=== PATIENT | male | born 1935 | race Caucasian/White ===

== ENCOUNTER 2017-03-30 09:02 | Outpatient (CLI) | payer MEDICARE, OTHER ==
[2016-06-12 12:26] VITALS: BMI 28.1
--- NOTE | ~2017-03-30 | HEMODYNAMI ---
PATIENT:MIQUEL WHALEN MEDICAL RECORD: [id number] : 39 LOCATION:[facility] ADMISSION DATE: 03/30/17 Generatedon:03/30/201714:07 Patient name: MIQUEL WHALEN Patient #: [id number] SSN: [id number] : 1935 Date of study: 03/30/2017 Page: Of Hemodynamic Procedure Report Patient Data Patient Demographics Procedure consent was obtained First Name: MIQUEL Gender: Male Last Name: KOBY : 1935 [facility] Initial: LIU Age: 81 year(s) Patient #: [id number] Race: SSN: [id number] Additional ID: [id number] Contact details Address: [address] [place] [address] State: [place] City: [place] Zip code: [address] Past Medical History Allergies Allergen Reaction Date Comments Reported Morphine 06/12/2016 Other allergy 03/30/2017 XARELTO Admission Admission Data Admission Date: 03/30/2017 Admission Time: 9:02 Height (in.): 75 BSA: 2.24 (m2) Height (cm.): 190.5 BMI: 26.37 (kg/m2) Weight (lbs.): 211 Weight (kg.): 95.71 Procedure Procedure Types Cath Procedure Diagnostic Procedure [facility] w/Coronaries Miscellaneous Procedures Moderate Sedation up to 30 minutes Procedure Description Procedure Date Procedure Date: 03/30/2017 Procedure Start Time: 13:49 Procedure End Time: 14:07 Procedure Staff Name Function Jed Silverman MD Performing Physician Vita Phillips RT Scrub Priscila James RN Nurse Adrianna Phan RT Monitor Procedure Data Cath Procedure Fluoroscopy Diagnostic fluoroscopy Total fluoroscopy Time: 3.7 time: 3.7 min min Diagnostic fluoroscopy Total fluoroscopy dose: 666 dose: 666 mGy mGy Contrast Material Contrast Material Type Amount (ml) Isovue 300 77 Entry Location Entry Primary Successful Side Size Upsize Upsize Entry Closure Succes sful Closure Location (Fr) 1 (Fr) 2 (Fr) Remarks Device Remarks Femoral Right 5 Fr 6 Fr 6 Fr Exoseal artery Long Short Estimated blood loss: 5 ml Diagnostic catheters Device Type Used For End Catheter Placement Cordis 5Fr JL 4.0 Left Coronary Catheter (MP) Angiography Diagnostic Infinity 5Fr Left Coronary JL 5 catheter Angiography Diagnostic Infinity 5Fr Left Coronary JL 5 catheter Angiography Cordis 5Fr 3DRC Catheter Right Coronary (MP) Angiography Cordis 5Fr Pigtail LV Angiography Catheter (MP) Procedure Complications No complications Procedure Medications Medication Administration Route Dosage Oxygen NC 2 l/min Heparin Flush Bag added to field 2 bags (1000units/500ml NS) Lidocaine 2% added to field 20 Fentanyl I.V. 50 mcg Versed I.V. 1 mg Fentanyl I.V. 25 mcg Versed I.V. 0.5 mg Hemodynamics Rest BSA: 2.24 (m2) O2 Consumption: Estimated: 253.62 (ml/min) O2 Consumption indexed : Estimated:113.22 (ml/min/m) Heart Rate: 67 (bpm) Pressure Samples Time Site Value (mmHg) Purpose Heart Use Rate(bpm) 14:02 LV 156/22,24 EDP 60 14:02 AO 152/92(126) Pullback 60 Gradients Valve Time Site Site 2 Mean SEP/DFP Peak To Heart Use 1 (mmHg) (sec/min) Peak Rate (mmHg) (bpm) Aortic 14:02 LV AO 1 5 60 152/92(126) Calculations Valve P-P Mean Valve Index Valve Source Name Gradient Area Flow (cm2) Aortic 1 1 Snapshots Pre Cath Intra NCS Post Cath Vital Signs Time Heart Resp SPO2 etCO2 NIBP (mmHg) Rhythm Pain Sedation Rate (ipm) (%) (mmHg) Status Level (bpm) 13:37:58 65 16 95 28.8 186/104(151) NSR 0 (11) 10(A) , No pain 13:42:24 58 17 99 47.7 175/97(132) NSR 0 (11) 10(A) , No pain 13:46:45 59 19 98 40.1 161/93(118) NSR 0 (11) 10(A) , No pain 13:51:03 56 19 98 33.3 150/87(104) NSR 0 (11) 9(A) , No pain 13:55:23 51 16 98 21.9 124/79(94) NSR 0 (11) 9(A) , No pain 14:00:05 58 20 97 18.9 152/97(116) NSR 0 (11) 9(A) , No pain 14:04:17 60 18 96 19.7 158/95(127) NSR 0 (11) 9(A) , No pain Medications Time Medication Route Dose Verified Delivered Reason Notes Effec tiveness by by 13:39:10 Oxygen NC 2 Priscila Priscila used for l/min James James new car salesperson RN 13:39:21 Heparin Flush added 2 Priscila Priscila used for Bag to bags James James procedure (1000units/500ml field RN RN NS) 13:39:28 Lidocaine 2% added 20ml Priscila Prsicila used for to vial James James procedure field RN RN 13:49:20 Fentanyl I.V. 50 Priscila Priscila for mcg James James sedation RN RN 13:49:25 Versed I.V. 1 mg Priscila Priscila for James James sedation RN RN 13:55:24 Fentanyl I.V. 25 Priscila Priscila for mcg James James sedation RN RN 13:55:27 Versed I.V. 0.5 Priscila Priscila for mg James James sedation RN ultrasonic hand solderer Log Time Note 13:20:44 Adrianna Counts RT(R) sent for patient. Start room use. 13:20:50 Time tracking: Regular hours 13:21:00 Plan of Care:Hemodynamics will remain stable., Cardiac rhythm will remain stable., Comfort level will be maintained., Respiratory function will remain adequate., Patient/ family verbilizes understanding of procedure., Procedure tolerated without complication., Recovers from procedure without complications.. 13:35:16 Patient received from ED to CCL 2 Alert and oriented. Tansferred to table in Supine position. 13:35:17 Warm blankets applied, and hilda hugger turned on for patient comfort. 13:35:18 Correct patient and procedure confirmed by team. 13:35:19 Signed procedure consent form obtained from patient. 13:36:49 ECG and BP/O2 sat monitors applied to patient. 13:36:49 Vital chart was started 13:36:50 Baseline sample Acquired. 13:38:47 Full Disclosure recording started 13:38:49 Rhythm: sinus rhythm 13:38:52 Baseline sample Acquired. 13:39:01 H&P Date Dictated: 03/30/2017 Within 30 days and on chart., ER History on chart.. 13:39:06 Pre-procedure instructions explained to patient. 13:39:06 Pre-op teaching completed and patient verbalized understanding. 13:39:08 Family unavailable. 13:39:10 Oxygen 2 l/min NC was administered by Priscila James RN; used for procedure; 13:39:10 Patient NPO since Midnight. 13:39:21 Heparin Flush Bag (1000units/500ml NS) 2 bags added to field was administered by Priscila James RN; used for procedure; 13:39:23 Patient allergic to Other allergyXARELTO 13:39:27 Is the patient allergic to Iodine/contrast media? No. 13:39:28 Lidocaine 2% 20ml vial added to field was administered by Priscila James RN; used for procedure; 13:39:31 Is patient on blood thinner?No 13:39:34 ACC The patient was administered the following blood thiners within the last 24 hours: ACCPlavix 13:39:36 Patient diabetic? No. 13:39:43 Previous problem with sedation/anesthesia? No ? 13:39:44 Snore? Yes 13:39:45 Sleep apnea? No 13:39:46 Deviated septum? No 13:39:47 Opens mouth fully? Yes 13:39:47 Sticks out tongue? Yes 13:39:49 Airway obstruction? No ? 13:39:50 Dentures? No ? 13:39:54 Pre procedure: right dorsailis pedis pulse 2+ Normal; easily identifiable; not easily obliterated 13:39:57 Patient pain scale 0/10 ?. 13:40:03 IV patent on arrival in left forearm with 0.9% NaCl at [facility]. 13:40:07 Lab results completed and on chart. 13:40:09 Right groin area was prepped with chlora-prep and draped in sterile fashion 13:40:10 Alarms reviewed by R. N. 13:40:10 Sharps counted by scrub and verified by R.N. 13:40:13 Use device set Femoral Dx 13:40:14 Acist Syringe opened to sterile field. 13:40:14 Bag Decanter opened to sterile field. 13:40:15 Medline Cath Pack opened to sterile field. 13:40:15 Terumo 5Fr [place] Sheath opened to sterile field. 13:40:15 St Karthik 260cm J .035 wire opened to sterile field. 13:40:17 Acist Hand Control opened to sterile field. 13:40:17 Acist Manifold opened to sterile field. 13:40:17 Diagnostic Infinity 5Fr Multipack catheter opened to sterile field. 13:40:18 Tegaderm 4 x 4 opened to sterile field. 13:41:17 Patient Height : 75 inches 13:41:20 Patient Weight : 211 lbs 13:43:41 Final Timeout: patient, procedure, and site verified with staff and physician. All members of the team are in agreement. 13:43:43 Right groin site verified by team. 13:43:45 Physical assessment completed. ASA score P 2 - A patient with mild systemic disease as per Jed Silverman MD. 13:43:48 Sedation plan: IV Moderate Sedation Versed, Fentanyl 13:49:04 Procedure started. 13:49:08 Local anesthetic to right femoral artery with Lidocaine 2% by Jed Silverman MD.INITIAL ACCESS ONLY 13:49:20 Fentanyl 50 mcg I.V. was administered by Priscila James RN; for sedation; 13:49:25 Versed 1 mg I.V. was administered by Priscila James RN; for sedation; 13:49:34 A 5 Fr sheath was inserted into the Right Femoral artery 13:49:52 Zero performed for pressure channel P1 13:50:18 A Cordis 5Fr JL 4.0 Catheter () was advanced over the wire and used for Left Coronary Angiography. REMOVED, UNABLE TO CANNULATE 13:52:45 A Diagnostic Infinity 5Fr JL 5 catheter was advanced over the wire and used for Left Coronary Angiography.REMOVED, UNABLE TO CANNULATE 13:54:33 Terumo 6Fr [place] Destination Sheath opened to sterile field. 13:55:24 Fentanyl 25 mcg I.V. was administered by Priscila James RN; for sedation; 13:55:27 Versed 0.5 mg I.V. was administered by Priscila James RN; for sedation; 13:56:18 Sheath upsized to a 6 Fr Long. 13:56:33 A Diagnostic Infinity 5Fr JL 5 catheter was advanced over the wire and used for Left Coronary Angiography. 13:57:58 Catheter removed. 13:58:04 A Cordis 5Fr 3DRC Catheter (MP) was advanced over the wire and used for Right Coronary Angiography. 13:59:53 Catheter removed. 13:59:57 A Cordis 5Fr Pigtail Catheter (MP) was advanced over the wire and used for LV Angiography. 14:00:48 Terumo 6Fr [place] Sheath opened to sterile field. 14:02:13 LV gram done using TEJADA 14:02:15 LV hemodynamics recorded. 14:02:18 Injector settings: Ml/sec: 10, Volume: 20, 14:02:23 EF : 55 % 14:02:35 Catheter removed. 14:02:40 Sheath upsized to a 6 Fr Short. 14:02:47 Cordis 6Fr Exoseal opened to sterile field. 14:03:16 Sheath removed intact; hemostasis achieved with Exoseal to the Right Femoral artery. 14:03:20 Procedure ended.(Physican Out) 14:04:45 Fluoroscopy time 03.70 minutes. 14:04:48 Fluoroscopy dose: 666 mGy 14:04:48 Flurop Dose total: 666 14:04:57 Contrast amount:Isovue 300 77ml. 14:04:59 Sharps counted by scrub and verified by R.N. 14:05:00 Insertion/operative site no bleeding no hematoma. 14:05:04 Post-op/insertion site Right Femoral artery dressed using a 4 x 4 and Tegaderm. 14:05:07 Post right femoral artery:stable, clean and dry 14:05:09 Post Procedure Pulses reassessed and unchanged 14:05:11 Post-procedure physical assessment completed. ASA score P 2 - A patient with mild systemic disease as per Jed Silverman MD. 14:05:13 Post procedure rhythm: unchanged. 14:05:15 Estimated blood loss: 5 ml 14:05:17 Post procedure instruction explained to patient.Patient verbalizes understanding. 14:05:17 Patient needs reinforcement of post procedure teaching. 14:05:27 Procedure type changed to Cath procedure, Diagnostic procedure, LHC, LHC w/Coronaries, Miscellaneous Procedures, Moderate Sedation up to 30 minutes 14:05:34 Procedure Complication : No complications 14:05:36 See physician's report for complete and final results. 14:07:08 Procedure and supply charges have been captured, reviewed, submitted and are correct. 14:07:10 Vital chart was stopped 14:07:12 Report given to Pre/Post Procedure Room. 14:07:15 Patient transfered to Pre/Post Procedure Room with Stretcher. 14:07:17 Procedure ended. 14:07:17 Full Disclosure recording stopped 14:07:25 End room use (Document Last) Device Usage Item Name Manufacture Quantity Catalog Hospital Part Current Minimal L ot# / Number Charge Number Stock Stock Serial# Code Acist Acist 1 [id number] 149224 256528 140673 20 Syringe [employer] Inc Bag Microtek 1 2002S 323164 19808 635010 5 Decanter [employer] Inc. Medline Cardinal 1 [id number] [id number] 63724 039532 5 Cath Pack Health Terumo 5Fr Terumo 1 VOR002 833517 876110 023648 [address] Karthik 1 193207 347995 745210 265777 30 260cm J .035 wire Acist Hand Acist 1 08249 579548 627630 228543 5 Control [employer] Inc Acist Acist 1 35712 183121 311389 335887 5 Manifold Medical Systems Inc Diagnostic Cardinal 1 [id number] 877228 21090 382702 30 Infinity Health 5Fr Multipack catheter Tegaderm 4 3M 1 1626W 227966 505812 324462 5 x 4 Cordis 5Fr Cardinal 1 958562 5 JL 4.0 Health Catheter (MP) Diagnostic Cardinal 1 [id number] 482981 275105 385748 5 Infinity Health 5Fr JL 5 catheter Terumo 6Fr Terumo 1 RSR01 635619 60159 553051 5 [place] Destination Sheath Cordis 5Fr Cardinal 1 253993 5 3DRC Health Catheter (MP) Cordis 5Fr Cardinal 1 038334 5 Pigtail Health Catheter (MP) Terumo 6Fr Terumo 1 QWN176 616950 001400 153580 40 [place] Sheath Cordis 6Fr Cardinal 1 EX600 745989 372890 393379 10 Progression Labs Signature Audit Duncan Stage Time Signature Unsigned Intra-Procedure 03/30/2017 Adrianna 2:07:36 PM Counts RT(R) Signatures Monitor : Adrianna Signature : Counts RT Date : Time : [address] [place] [address]
[~2017-03-30 09:02] MED LIST: CASCARA; CELEXA20 MG PO; CRESTOR40 MG PO; NEURONTIN 300300 MG PO; PLAVIX75 MG PO; PROTONIX40 MG PO; SYNTHROID125 MCG PO
[2017-03-30 09:47] LABS: BASOPHILS 0 % (0-2); EOSINOPHILS 1.8 % (0-7); HEMATOCRIT 39.4 % (42.0-54.0); HEMOGLOBIN 12.8 g/dL (13.5-17.5); LYMPHOCYTES 24.1 % (15-50); MCH 31.4 pg (26.0-34.0); MCHC 32.5 g/dL (31.0-37.0); MCV 96.6 fL (80.0-100.0); MEAN PLATELET VOLUME 10.1 fL (7.4-10.4); MONOCYTES 10.6 % (2-11); NEUTROPHILS 63.5 % (40-80); PLATELET COUNT 159 10x3/uL (130-400); RBC 4.08 10x6/uL (4.20-6.10); RDW 14.1 % (11.5-14.5); WBC 5.7 10x3/uL (4.8-10.8)
[2017-03-30 10:04] LABS: ALBUMIN 3.5 g/dL (3.4-5.0); ALKALINE PHOSPHATASE 78 U/L (46-116); ALT (SGPT) 23 U/L (10-68); BILIRUBIN - TOTAL 0.52 mg/dL (0.2-1.3); CALC OSMOLALITY 280 mosm/kg (275-300); CALCIUM 9.2 mg/dL (8.5-10.1); CARBON DIOXIDE 28.5 mmol/L (21.0-32.0); CHLORIDE - SERUM 104 mmol/L (98-107); CREATININE - SERUM 1.3 mg/dL (0.6-1.3); GLUCOSE 93 mg/dL (74-106); POTASSIUM - SERUM 4.4 mmol/L (3.5-5.1); PROTEIN - SERUM 6.7 g/dL (6.4-8.2); SODIUM 140 mmol/L (136-145); UREA NITROGEN 18 mg/dL (7-18); eGFR NON AFRICAN AMERICAN 56 mL/min (90-120)
[2017-03-30 10:13] LABS: CHOL - HDL RATIO 3.4 ratio (2.3-4.9); CHOLESTEROL, TOTAL 151 mg/dL (0-200); CKMB 1.9 U/L (0.0-3.6); CREATINE KINASE 109 UL (21-232); HDL CHOLESTEROL 45 mg/dL (32-96); LDL CHOLESTEROL 76 mg/dL (0-100); LDL-HDL RATIO 1.7 ratio (1.5-3.5); MAGNESIUM - SERUM 2.3 mg/dL (1.8-2.4); TRIGLYCERIDE 152 mg/dL (30-200)
[2017-03-30 10:14] LABS: TROPONIN-I < 0.017 ng/mL (0.000-0.060)
== END 2017-03-30 16:30 | disposition home or self-care (01) ==
LOC: D.OPS 09:02 → D.ER 09:02 → EDSTATUS 13:48 → D.OPS 16:30
PROVIDERS: Emergency Medicine
DX: I25.119 Atherosclerotic heart disease of native coronary artery with unspecified angina pectoris (principal); R06.00 Dyspnea, unspecified; E78.5 Hyperlipidemia, unspecified; E03.9 Hypothyroidism, unspecified; K21.9 Gastro-esophageal reflux disease without esophagitis; Z01.812 Encounter for preprocedural laboratory examination

== ENCOUNTER 2017-11-16 11:13 | Outpatient (CLI) | payer MEDICARE, OTHER ==
[~2017-11-16] VITALS: Ht 190.5 cm; Wt 90.8 kg
--- NOTE | ~2017-11-16 | OP ---
PATIENT NAME: MIQUEL WHALEN MEDICAL RECORD: [id number] :37 LOCATION:D[facility] ADMISSION DATE: SURGEON: MARCIAL ARCHER MD DATE OF OPERATION: 11/16/2017 PROCEDURES: 1. PTCA stent LAD. 2. Intravascular ultrasound. 3. Left heart catheterization. 4. Selective coronary angiography. 5. Left ventriculogram. INDICATION: Unstable angina and coronary artery disease. PROCEDURE IN DETAIL: After informed consent was obtained and after a detailed description of the risks, benefits as well as alternative therapies, the patient elected to proceed with angiogram and angioplasty. The left femoral area was prepped and draped in normal sterile fashion. Left femoral artery was cannulated via modified Seldinger technique with placement of 6-[place] sheath. All catheters exchanged through this sheath. FINDINGS: Left ventriculogram was performed in standard 30-degree TEJADA view, reveals good cardiac wall motion throughout all segments. Overall ejection fraction estimated at 55%. SELECTIVE CORONARY ANGIOGRAPHY: 1. Left main has no significant angiographic disease. 2. Left anterior descending has previously placed stents. Intravascular ultrasound confirms greater than 70% in-stent restenosis. 3. Left circumflex has moderate irregularities, but no flow-limiting stenosis. 4. The right coronary has mild irregularities, but no flow-limiting stenosis. PTCA STENT OF THE LAD: The stent used is a 3.0 x 15 mm Loraine. Result was 0% residual stenosis. OVERALL IMPRESSION: Successful percutaneous transluminal coronary angioplasty stent of the left anterior descending going from greater than 70% initial stenosis to 0% residual. TRANSINT:[id number] Voice Confirmation ID: [id number] DOCUMENT ID: [id number] MARCIAL ARCHER MD at 1403 CC: [id number] DICTATION DATE: 11/16/17 1609 SHADE MAKER: 11/16/17 1847 DEP CLI 11/17/17 [place] [id number]
--- NOTE | ~2017-11-16 | OP ---
PATIENT NAME: MIQUEL WHALEN MEDICAL RECORD: [id number] :37 LOCATION:D.CAT ADMISSION DATE: SURGEON: MARCIAL ARCHER MD DATE OF OPERATION: 11/16/2017 PROCEDURE: 1. Aortofemoral runoff. 2. Abdominal aortography. INDICATION: Claudication, peripheral vascular disease, difficulty obtaining access for cardiac catheterization. PROCEDURE IN DETAIL: After informed consent was obtained and after detailed description of risks, benefits as well as alternative therapies, the patient elected to proceed with angiogram. The left femoral area had a preexisting sheath from cardiac intervention. All catheters exchanged through this sheath. FINDINGS: Abdominal aortography was performed. The catheter was pulled down for aortofemoral runoff. Abdominal aortography reveals very tortuous abdominal aorta, but no dissection or aneurysm formation. No abdominal aortic disease of significance. No renal artery stenosis. RIGHT LEG: A. Iliac: The common internal and external iliacs are tortuous, but no flow-limiting stenosis. B. Femoral system: The common superficial and deep femoral have moderate irregularities, but no flow-limiting stenosis. C. Popliteal and infrapopliteal vessels are widely patent with good 3-vessel runoff to the foot. LEFT LEG: A. Iliac: The common internal and external iliacs are extremely tortuous, but no flow-limiting stenosis. B. Femoral system: The common superficial and deep femoral have moderate irregularities, but no flow-limiting stenosis. C. Popliteal and infrapopliteal vessels are widely patent. Good 3-vessel runoff to the foot. OVERALL IMPRESSION: Tortuosity of the iliacs, minimal peripheral vascular disease is present. Continue medical management of the peripheral vascular risk factors. TRANSINT:[id number] Voice Confirmation ID: [id number] DOCUMENT ID: [id number] MARCIAL ARCHER MD at 1403 CC: [id number] DICTATION DATE: 11/16/17 1609 BIKE TECHNICIAN: 11/16/17 1850 DEP CLI 11/17/17 [place] [id number] [place] [id number]
--- NOTE | ~2017-11-16 | CN ---
PATIENT NAME:MIQUEL LEE MEDICAL RECORD: [id number] : 39 LOCATION:D.CAT ADMIT DATE: ACCOUNT: [id number] CONSULTING PHYSICIAN: MARCIAL ARCHER MD REFERRING PHYSICIAN: YUMIKO ISRAEL MD DATE OF CONSULTATION: 11/16/2017 DIAGNOSES: 1. Unstable angina. 2. Coronary artery disease. 3. Previous multivessel percutaneous transluminal coronary angioplasty stent. 4. Hyperlipidemia. 5. Gastroesophageal reflux disease. HISTORY OF PRESENT ILLNESS: Mr. Lee presents with angina. He has a history of multivessel PTCA stent, the last being 2 years ago. He had severe chest discomfort this morning, just like that of his previous angina. It was relieved with nitroglycerin. His chest pain was more severe than he has had in the past. His EKG is abnormal with a right bundle branch block. PHYSICAL EXAMINATION: GENERAL APPEARANCE: Well-nourished, well-developed, appears stated age. Level of distress, comfortable. PSYCHIATRIC: Mental status, alert, normal affect. Orientation, oriented to time, place and person. EYES: Lids and conjunctiva, noninjected. No discharge, no pallor. ENT: Lips, teeth, gums, normal dentition. Oropharynx, no cyanosis, no pallor. NECK: Carotid arteries, bilateral normal upstroke, no bruits, no thrills. JUGULAR VEINS: No jugular venous pressure or distention. CERVICAL LYMPH NODES: Nontender, nonenlarged. THYROID: Not enlarged. Nontender. No nodules. LUNGS: Respiratory effort, unlabored. CHEST: Normal curvature. No thoracic deformity. No chest wall tenderness. Percussion, resonant. Auscultation, clear. No wheezes, no rales, no rhonchi. CARDIOVASCULAR: Precordial exam, nondisplaced. No heaves or pericardial thrills. Rate and rhythm, regular. Heart sounds, normal S1, normal S2. No S3, no gallop, no rub. Systolic murmur, not heard. Diastolic murmur, not heard. EXTREMITIES: No cyanosis, no edema. Peripheral pulses, full and equal in all extremities, except as noted. No bruits appreciated. ABDOMEN: Soft, nondistended. Normal aorta. No bruit. Nontender. No masses. Liver, nontender, no hepatomegaly. Spleen, nontender, no splenomegaly. MUSCULOSKELETAL: No joint tenderness. No joint swelling. No erythema. NEUROLOGICAL: Normal gait, normal strength, normal tone. SKIN: Warm and dry. REVIEW OF SYSTEMS: The patient reports easy bruising but reports no swollen glands. The patient reports no fever, no night sweats, no significant weight gain, no significant weight loss. No significant exercise tolerance. The patient reports no dry eyes, no irritation, no vision change. Patient reports no difficulty hearing and no ear pain. Patient reports no frequent nose bleeds or nose and sinus problems. Patient reports on arm pain on exertion. No shortness of breath while lying down. No history of heart murmur. Patient reports no cough, no wheezing or coughing up blood. Patient reports no abdominal pain, no vomiting. Normal appetite. No diarrhea and not vomiting blood. No nausea and no constipation. Patient reports no incontinence. No CONSULT REPORT [id number] MIQUEL LEE difficulty urinating. No hematuria. No increased frequency. Patient reports no muscle aches. No weakness, no arthralgias, no back pain. No swelling of the extremities. Patient reports no abnormal mole, no jaundice, no rashes. Reports no loss of consciousness. No weakness and no numbness. No seizures, dizziness, or headaches. The patient reports no depression, no sleep disturbance, feeling safe in a relationship and no alcohol abuse. Patient reports on fatigue. Reports no runny nose or sinus pressure. No itching, no hives, and no frequent sneezing. OVERALL IMPRESSION: Chest pain compatible with angina, very severe. He has continued to have episodes of chest pain. Most likely, he has recurrent hemodynamically significant coronary artery disease. We will proceed with coronary angiography. Further care depends upon findings of the angiography. TRANSINT:[id number] Voice Confirmation ID: [id number] DOCUMENT ID: [id number] MARCIAL ARCHER MD at 1605 CC: [id number] DICTATION DATE: 11/16/17 1146 METAL SLITTER: 11/16/17 1405 [facility] [address] [place] [address]
--- NOTE | ~2017-11-16 | HEMODYNAMI ---
PATIENT:MIQUEL WHALEN MEDICAL RECORD: [id number] : 39 LOCATION:D.CAT ADMISSION DATE: 11/16/17 Generatedon:11/16/201716:07 Patient name: MIQUEL WHALEN Patient #: [id number] SSN: [id number] : 1935 Date of study: 11/16/2017 Page: Of Hemodynamic Procedure Report Patient Data Patient Demographics Procedure consent was obtained First Name: MIQUEL Gender: Male Last Name: KOBY : 1935 [facility] Initial: LIU Age: 82 year(s) Patient #: [id number] Race: SSN: [id number] Additional ID: [id number] Contact details [address]: [address] [place] [address] State: [place] City: [place] Zip code: [address] Past Medical History Allergies Allergen Reaction Date Comments Reported Morphine 06/12/2016 Other allergy 03/30/2017 XARELTO Other allergy 11/16/2017 Morphine, rivaroxaban Admission Admission Data Admission Date: 11/16/2017 Admission Time: 11:13 Height (in.): 74.8 BSA: 2.25 (m2) Height (cm.): 190 BMI: 26.87 (kg/m2) Weight (lbs.): 213.85 Weight (kg.): 97 Lab Results Lab Result Date: 11/16/2017 Lab Result Time: 0:00 Biochemistry Name Units Result Min Max BUN mg/dl 13 --(--*-)-- 7 18 Creatinine mg/dl 1.3 --(---*)-- 0.6 1.3 CBC Name Units Result Min Max Hemoglobin g/dl 11.9 *-(----)-- 13.5 17.5 Procedure Procedure Types Cath Procedure Diagnostic Procedure [facility] w/Coronaries FFR/IVUS Intra-Coronary IVUS Initial Sedation Charges Moderate Sedation up to 15 minutes PCI Procedure Coronary Stent Coronary Stent Initial Peripheral Cath Diagnostic Procedure Cath Peripheral Pcwqo-Tovculq-Bkz-Off Procedure Description Procedure Date Procedure Date: 11/16/2017 Procedure Start Time: 15:42 Procedure End Time: 16:04 Procedure Staff Name Function Godfrey Baires MD Performing Physician Nkechi Martínez RT Monitor Filipe Castillo RN Nurse Heather Gamino RN Nurse Vita Phillips RT Scrub Procedure Data Cath Procedure Fluoroscopy Diagnostic fluoroscopy Total fluoroscopy Time: 5.9 time: 5.9 min min Diagnostic fluoroscopy Total fluoroscopy dose: dose: 1311 mGy 1311 mGy Contrast Material Contrast Material Type Amount (ml) Isovue 300 130 Entry Location Entry Primary Successful Side Size Upsize 1 Upsize Entry Closure Cutler ccessful Closure Location (Fr) (Fr) 2 (Fr) Remarks Device Remarks Femoral Left 6 Fr 6 Fr 6 Fr Exoseal artery Short Mid-Length Short Estimated blood loss: 10 ml Diagnostic catheters Device Type Used For End Catheter Placement MULTIPACK Pigtail 5 Fr Abdominal catheter aortogram with runoff MULTIPACK Pigtail 5 Fr LV Angiography catheter MULTIPACK JL 4.0 5Fr Procedure catheter MULTIPACK 3DRC 5Fr Procedure catheter Procedure Complications No complications Procedure Medications Medication Administration Route Dosage Oxygen NC 2 l/min Lidocaine 2% added to field 20 Heparin Flush Bag added to field 2 bags (1000units/500ml NS) 0.9% NaCl I.V. 100 ml/hr Versed I.V. 1 mg Fentanyl I.V. 50 mcg Versed I.V. 1 mg Fentanyl I.V. 50 mcg Heparin Bolus I.V. 4000 units Hemodynamics Rest BSA: 2.25 (m2) HGB: 11.9 (g/dl) O2 Consumption: Estimated: 252.65 (ml/min) O2 Co nsumption indexed: Estimated:112.29 (ml/min/m) Heart Rate: 65 (bpm) Pressure Samples Time Site Value (mmHg) Purpose Heart Use Rate(bpm) 15:49 LV 83/2,-12 Snapshot 113 15:49 LV 166/13,17 Snapshot 81 15:49 AO 152/75(111) Pullback 66 15:49 LV 173/12,17 Pullback 66 Gradients Valve Time Site 1 Site 2 Mean SEP/DFP Peak To Heart Use (mmHg) (sec/min) Peak Rate (mmHg) (bpm) Aortic 15:49 LV AO 28 21 21 66 173/12,17 152/75(111) Calculations Valve P-P Mean Valve Index Valve Source Name Gradient Area Flow (cm2) Aortic 21 28 28 Snapshots Pre Cath Intra NCS Post Cath Vital Signs Time Heart Resp SPO2 etCO2 NIBP (mmHg) Rhythm Pain Sedation Rate (ipm) (%) (mmHg) Status Level (bpm) 15:36:35 67 13 98 25.4 200/105(126) NSR 0 (11) 10(A) , No pain 15:41:03 66 18 97 20 199/103(123) NSR 0 (11) 10(A) , No pain 15:45:21 66 15 96 24.2 160/90(151) NSR 0 (11) 9(A) , No pain 15:49:41 67 16 95 24.7 156/107(129) NSR 0 (11) 9(A) , No pain 15:53:59 68 14 96 27.7 158/87(124) NSR 0 (11) 9(A) , No pain 15:58:17 66 15 96 21.7 161/97(139) NSR 0 (11) 9(A) , No pain 16:02:37 71 15 97 21.7 164/96(142) NSR 0 (11) 10(A) , No pain Medications Time Medication Route Dose Verified Delivered Reason Notes Effectiveness by by 15:38:32 Oxygen NC 2 Godfrey Buffie used for l/min Viry Gamino RN procedure 15:38:39 Lidocaine 2% added 20ml Godfrey Godfrey for local to vial Viry Baires MD anesthetic field 15:38:44 Heparin Flush added 2 Godfrey Godfrey used for Bag to bags Viry Baires MD procedure (1000units/500ml field NS) 15:38:54 0.9% NaCl I.V. 100 Godfrey Buffie Per physician ml/hr Viry Gamino RN 15:40:12 Versed I.V. 1 mg Godfrey Buffie for sedation Viry Gamino RN 15:40:19 Fentanyl I.V. 50 Godfrey Buffie for sedation mcg Viry Gamino RN 15:50:00 Versed I.V. 1 mg Godfrey Buffie for sedation Viry Gamino RN 15:50:04 Fentanyl I.V. 50 Godfrey Buffie for sedation mcg Viry Gamino RN 15:55:59 Heparin Bolus I.V. 4000 Godfrey Buffie for verifi ed units Tauth MD Gamino RN anticoagulation with dr baires Procedure Log Time Note 15:16:30 Patient Height : 74.8 inches 15:16:36 Patient Weight : 213.85 lbs 15:17:09 Lab Result : Hemoglobin 11.9 g/dl 15:17:09 Lab Result : Creatinine 1.3 mg/dl 15:17:09 Lab Result : BUN 13 mg/dl 15:17:52 Diagnostic Cath status Elective 15:17:55 Vita Phillips RT(R) sent for patient. Start room use. 15:17:57 Time tracking: Regular hours (M-F 7:00 - 5:00) 15:18:04 Plan of Care:Hemodynamics will remain stable., Cardiac rhythm will remain stable., Comfort level will be maintained., Respiratory function will remain adequate., Patient/ family verbilizes understanding of procedure., Procedure tolerated without complication., Recovers from procedure without complications.. 15:18:12 Patient received from ED to CCL 2 Alert and oriented. Tansferred to table in Supine position. 15:18:14 Warm blankets applied, and hilda hugger turned on for patient comfort. 15:18:15 Correct patient and procedure confirmed by team. 15:18:24 H&P Date Dictated: 11/16/2017 Emergent; H&P N/A. 15:18:29 Family in waiting room. 15:19:02 Patient allergic to Other allergyMorphine, rivaroxaban 15:27:38 Signed procedure consent form obtained from patient. 15:27:39 ECG and BP/O2 sat monitors applied to patient. 15:28:12 Pre-procedure instructions explained to patient. 15:28:14 Pre-op teaching completed and patient verbalized understanding. 15:28:44 Patient NPO since Breakfast. 15:28:47 Is the patient allergic to Iodine/contrast media? No. 15:29:06 Is patient on blood thinner?Yes 15:29:11 ACC The patient was administered the following blood thiners within the last 24 hours: ACCAspirin, ACCPlavix 15:29:41 Patient diabetic? No. 15:29:46 ----Pre-sedation anethsthesia assessment.---- 15:29:49 Previous problem with sedation/anesthesia? No ? 15:29:51 Snore? Yes 15:29:53 Sleep apnea? No 15:29:57 Deviated septum? No 15:29:59 Opens mouth fully? Yes 15:30:02 Sticks out tongue? Yes 15:30:07 Airway obstruction? No ? 15:30:12 Dentures? No ? 15:30:23 Pre procedure: right dorsailis pedis pulse 1+ Palpable, but thready & weak; easily obliterated 15:30:54 Patient pain scale 7/10 Dr. Baires aware. 15:31:24 IV patent on arrival in left wrist with 0.9% NaCl at [facility]. 15:31:29 Lab results completed and on chart. 15:32:17 Alarms reviewed by R. N. 15:32:19 Sharps counted by scrub and verified by R.N. 15:34:13 Vital chart was started 15:34:51 Pre procedure: left dorsailis pedis pulse 2+ Normal; easily identifiable; not easily obliterated 15:34:57 Left groin area was prepped with chlora-prep and draped in sterile fashion 15:35:13 Baseline sample Acquired. 15:35:19 Rhythm: sinus rhythm 15:35:21 Full Disclosure recording started 15:38:32 Oxygen 2 l/min NC was administered by Heather Gamino RN; used for procedure; 15:38:39 Lidocaine 2% 20ml vial added to field was administered by Godfrey Baires MD; for local anesthetic; 15:38:44 Heparin Flush Bag (1000units/500ml NS) 2 bags added to field was administered by Godfrey Baires MD; used for procedure; 15:38:54 0.9% NaCl 100 ml/hr I.V. was administered by Heather Gamino RN; Per physician; 15:39:07 Physician paged 15:39:08 Physician arrived 15:39:09 --------ALL STOP TIME OUT------ 15:39:10 Final Timeout: patient, procedure, and site verified with staff and physician. All members of the team are in agreement. 15:39:12 Left groin site verified by team. 15:39:15 Physical assessment completed. ASA score P 2 - A patient with mild systemic disease as per Godfrey Baires MD. 15:39:20 Sedation plan: IV Moderate Sedation Medication:Versed, Fentanyl 15:40:12 Versed 1 mg I.V. was administered by Heather Gamino RN; for sedation; 15:40:19 Fentanyl 50 mcg I.V. was administered by Heather Gamino RN; for sedation; 15:40:41 Use device set Femoral Dx 15:42:11 Procedure started. 15:42:23 Local anesthetic to left femerol artery with Lidocaine 2% by Godfrey Baires MD.INITIAL ACCESS ONLY 15:42:38 ACIST Syringe (55574) opened to sterile field. 15:42:39 Bag Decanter (2002S) opened to sterile field. 15:42:40 Medline Cath Pack ([id number]) opened to sterile field. 15:42:41 DIAGNOSTIC WIRE .035 260cm J wire (881211) opened to sterile field. 15:42:44 ACIST Hand Control (56641) opened to sterile field. 15:42:45 ACIST Manifold (35275) opened to sterile field. 15:42:48 DIAGNOSTIC Multipack 5Fr catheter set (QG3972) opened to sterile field. 15:42:49 Tegaderm 4 x 4 (1626W) opened to sterile field. 15:43:11 SHEATH 6Fr Prelude ([id number]) opened to sterile field. 15:43:27 A 6 Fr Short sheath was inserted into the Left Femoral artery 15:44:32 GLIDE WIRE ANGLE 260cm (WS6838) opened to sterile field. 15:44:55 glidewire used to advance catheter 15:45:48 A MULTIPACK Pigtail 5 Fr catheter was advanced over the wire and used for Abdominal aortogram with runoff. 15:46:12 Catheter removed. 15:47:19 SHEATH 6FR ARROW 45cm (CL-37274) opened to sterile field. 15:47:31 Sheath upsized to a 6 Fr Mid-Length. 15:48:41 A MULTIPACK Pigtail 5 Fr catheter was advanced over the wire and used for LV Angiography. 15:48:53 Zero performed for pressure channel P1 15:48:56 Zero performed for pressure channel P1 15:48:59 Zero performed for pressure channel P1 15:49:56 EF : 60 % 15:49:58 Catheter removed. 15:50:00 Versed 1 mg I.V. was administered by Heather Gamino RN; for sedation; 15:50:04 Fentanyl 50 mcg I.V. was administered by Heather Gamino RN; for sedation; 15:50:24 A MULTIPACK JL 4.0 5Fr catheter was advanced over the wire and used for Procedure. 15:51:25 LCA angiography performed. 15:51:29 Catheter removed. 15:51:43 A MULTIPACK 3DRC 5Fr catheter was advanced over the wire and used for Procedure. 15:51:49 RCA angiography performed. 15:53:53 CHOICE PT Extra Support 182cm wire ([id number]) opened to sterile field. 15:53:53 INFLATOR Merit BasixCompak (GW9936) opened to sterile field. 15:53:54 GUIDE 6FR EBU 3.5 catheter ([id number]) opened to sterile field. 15:53:55 [place] IVUS Catheter (24391I) opened to sterile field. 15:54:04 Proceeding to intervention. 15:54:16 6 Fr EBU guide catheter was inserted over the wire 15:54:26 choice pt ex wire advanced. 15:54:34 Wire advanced across lesion. 15:54:37 IVUS catheter advanced over wire. 15:55:59 Heparin Bolus 4000 units I.V. was administered by Heather Gamino RN; for anticoagulation; verified with dr baires 15:57:13 IVUS catheter removed over wire. 15:58:22 Place stent Inflation Number: 1 A JESUS RX 3.0 x 15 stent ([id number]) was prepped and advanced across the Mid LAD. The stent was deployed at 19 ALEXANDER for 0:07 (min:sec). 15:58:26 Inflation number: 2 The stent balloon was then re-inflated across the Mid LAD to 19 ALEXANDER for 0:00 (min:sec). 15:58:40 Inflation number: 3 The stent balloon was then re-inflated across the Mid LAD to 21 ALEXANDER for 0:00 (min:sec). 15:59:16 EXOSEAL 6Fr (EX600) opened to sterile field. 15:59:27 Balloon removed over the wire. 15:59:32 Wire removed. 15:59:33 Guide catheter removed. 15:59:53 Sheath upsized to a 6 Fr Short. 15:59:53 Sheath removed intact; hemostasis achieved with Exoseal to the Left Femoral artery. 15:59:56 Procedure ended.(Physican Out) 16:01:29 Fluoroscopy time 05.90 minutes. 16:01:34 Flurop Dose total: 1311 16:01:34 Fluoroscopy dose: 1311 mGy 16:01:38 Contrast amount:Isovue 300 130ml. 16:01:40 Sharps counted by scrub and verified by R.N. 16:01:41 Insertion/operative site no bleeding no hematoma. 16:01:46 Post left femerol artery:stable 16:01:48 Post Procedure Pulses reassessed and unchanged 16:01:56 Post-procedure physical assessment completed. ASA score P 2 - A patient with mild systemic disease as per Godfrey Baires MD. 16:02:28 Post procedure rhythm: sinus rhythm 16:02:31 Estimated blood loss: 10 ml 16:02:35 Post procedure instruction explained to patient.Patient verbalizes understanding. 16:03:32 Procedure type changed to Cath procedure, Diagnostic procedure, LHC, LHC w/Coronaries, FFR/IVUS, Intra-Coronary IVUS Initial, Sedation Charges, Moderate Sedation up to 15 minutes, PCI procedure, Coronary Stent, Coronary Stent Initial, Peripheral Cath Diagnostic Procedure, Cath Peripheral, Fqesp-Jqyncih-Dei-Off 16:03:33 Procedure and supply charges have been captured, reviewed, submitted and are correct. 16:03:48 FEMSTOP Gold ([id number]) opened to sterile field. 16:03:58 Procedure Complication : No complications 16:04:01 Vital chart was stopped 16:04:03 Report given to Pre/Post Procedure Room. 16:04:06 Patient transfered to Pre/Post Procedure Room with Stretcher. 16:04:08 Procedure ended. 16:04:08 Full Disclosure recording stopped 16:05:14 End room use (Document Last) Intervention Summary Intervention Notes Time ActionType Lesion and Equipment Used Action# Pressure Duration Attributes 15:58:22 Place stent Mid LAD JESUS RX 3.0 x 1 19 00:07 15 stent ([id number]) 15:58:26 Reinflate Mid LAD JESUS RX 3.0 x 2 19 00:00 stent 15 stent balloon ([id number]) 15:58:40 Reinflate Mid LAD JESUS RX 3.0 x 3 21 00:00 stent 15 stent balloon ([id number]) Device Usage Item Name Manufacture Quantity Catalog Number Hospital Part Current M inimal Lot# / Charge Number Stock Stock Serial# Code ACIST Syringe Acist 1 68600 688562 503733 262282 2 0 (81052) Medical Systems Inc Bag Decanter Microtek 1 617333 46767 710065 5 () Medical Inc. Medline Cath Cardinal 1 [id number] 666323 58705 837589 5 Pack Health ([id number]) DIAGNOSTIC St Karthik 1 455386 459393 693191 108102 3 0 WIRE .035 260cm J wire (727182) ACIST Hand Acist 1 44432 604079 536895 293898 5 Control Medical (38708) Systems Inc ACIST Manifold Acist 1 24838 851260 471206 161415 5 (86212) Medical Systems Inc DIAGNOSTIC Cardinal 1 EC0105 528924 03635 544405 3 0 Multipack 5Fr Health catheter set (HW8781) Tegaderm 4 x 4 3M 1 1626W 449957 867990 770388 5 (1626W) SHEATH 6Fr Merit 1 [id number] 182669 838883 974018 5 Prelude Medical ([id number]) GLIDE WIRE Terumo 1 AC4730 799345 488219 387855 5 ANGLE 260cm (JG7291) MULTIPACK Cardinal 1 743038 5 Pigtail 5 Fr Health catheter SHEATH 6FR Teleflex 1 CL-64674 699524 442714 130493 5 ARROW 45cm (CL-61935) MULTIPACK JL Cardinal 1 907824 5 4.0 5Fr Health catheter MULTIPACK 3DRC Cardinal 1 691008 5 5Fr catheter Health CHOICE PT [place] 1 [id number] 262304 186858 429178 5 Extra Support Scientific 182cm wire ([id number]) INFLATOR Merit Merit 1 SP9928 287033 825660 929316 1 5 Exosome Diagnostics (SD3435) GUIDE 6FR EBU Medtronic 1 [id number] 474163 70577 737709 3 3.5 catheter ([id number]) [place] 1 94072C 335746 042460 060029 8 [place] IVUS Catheter (60085I) JESUS RX 3.0 x Medtronic 1 [id number] 014139 6909503 186887 5 [id number] 15 stent ([id number]) EXOSEAL 6Fr Cardinal 1 EX600 186203 774697 916091 1 0 (EX600) [facility] 1 W57082 865560 031603 149244 5 (C09360) Signature Audit [place] Stage Time Signature Unsigned Intra-Procedure 11/16/2017 Nkechi Martínez 4:06:57 PM RT(R) Signatures Monitor : Nkechi Martínez Signature : RT Date : Time : [id number] [place] [address]
[2017-11-16 12:00] LABS: BASOPHILS 0.1 % (0-2); EOSINOPHILS 1.4 % (0-7); HEMATOCRIT 36.5 % (42.0-54.0); HEMOGLOBIN 11.9 g/dL (13.5-17.5); IMMATURE GRANULOCYTES 0.1 % (0-5); LYMPHOCYTES 21.9 % (15-50); MCH 30.8 pg (26.0-34.0); MCHC 32.6 g/dL (31.0-37.0); MCV 94.6 fL (80.0-100.0); MEAN PLATELET VOLUME 10.1 fL (7.4-10.4); NEUTROPHILS 67.5 % (40-80); PLATELET COUNT 151 10x3/uL (130-400); RBC 3.86 10x6/uL (4.20-6.10); RDW 13.7 % (11.5-14.5); WBC 7.3 10x3/uL (4.8-10.8)
[2017-11-16 12:41] LABS: ALBUMIN 3.5 g/dL (3.4-5.0); ALKALINE PHOSPHATASE 76 U/L (46-116); ALT (SGPT) 20 U/L (10-68); BILIRUBIN - TOTAL 0.63 mg/dL (0.2-1.3); CALC OSMOLALITY 284 mosm/kg (275-300); CALCIUM 9.3 mg/dL (8.5-10.1); CARBON DIOXIDE 30.3 mmol/L (21.0-32.0); CHLORIDE - SERUM 106 mmol/L (98-107); CREATININE - SERUM 1.3 mg/dL (0.6-1.3); GLUCOSE 94 mg/dL (74-106); POTASSIUM - SERUM 4.1 mmol/L (3.5-5.1); PROTEIN - SERUM 6.5 g/dL (6.4-8.2); SODIUM 143 mmol/L (136-145); UREA NITROGEN 13 mg/dL (7-18); eGFR NON AFRICAN AMERICAN 56 mL/min (90-120)
[2017-11-16 12:51] LABS: CREATINE KINASE 105 UL (21-232); PRO BNP 244 pg/mL (0-450); TROPONIN-I < 0.017 ng/mL (0.000-0.060)
[2017-11-16 12:52] LABS: APTT 31.2 SECONDS (22.8-39.4); INR 1.01 (0.85-1.17); PROTIME 12.9 SECONDS (11.6-15.0)
[2017-11-16 13:30] LABS: CKMB 1.5 U/L (0.0-3.6)
[2017-11-16 16:46] VITALS: BP 164/95; Ht 190.5 cm; Wt 90.8 kg
[2017-11-16 20:00] VITALS: BP 150/89
[2017-11-17] VITALS: BP 144/72
[2017-11-17 04:00] VITALS: BP 144/79
== END 2017-11-17 09:01 | disposition home or self-care (01) ==
LOC: D.CATH 11:13 → D.M2 11:13 → D.ER 11:13 → EDSTATUS 12:33 → D.M2 16:22 → D.CATH 11-17 09:01
PROVIDERS: Emergency Medicine
DX: I25.110 Atherosclerotic heart disease of native coronary artery with unstable angina pectoris (principal); E78.5 Hyperlipidemia, unspecified; K21.9 Gastro-esophageal reflux disease without esophagitis; Z95.5 Presence of coronary angioplasty implant and graft; I70.219 Atherosclerosis of native arteries of extremities with intermittent claudication, unspecified extremity; Z01.812 Encounter for preprocedural laboratory examination
CPT/HCPCS: 93458; 92978; C9600

== ENCOUNTER 2018-04-22 11:00 | Outpatient (CLI) | payer MEDICARE, OTHER ==
[~2018-04-22] VITALS: Ht 190.5 cm; Wt 102.3 kg
--- NOTE | ~2018-04-22 | HEMODYNAMI ---
PATIENT:MIQUEL WHALEN MEDICAL RECORD: [id number] : 39 LOCATION:D.CAT ADMISSION DATE: 04/22/18 Generatedon:04/22/201815:21 Patient name: MIQUEL WHALEN Patient #: [id number] SSN: [id number] : 1935 Date of study: 04/22/2018 Page: Of Hemodynamic Procedure Report Patient Data Patient Demographics Procedure consent was obtained First Name: MIQUEL Gender: Male Last Name: KOBY : 1935 [facility] Initial: LIU Age: 82 year(s) Patient #: [id number] Race: SSN: [id number] Additional ID: [id number] Contact details [address]: [address] [place] [address] State: [place] City: [place] Zip code: [address] Past Medical History Allergies Allergen Reaction Date Comments Reported Morphine 06/12/2016 Other allergy 03/30/2017 XARELTO Other allergy 11/16/2017 Morphine, rivaroxaban Admission Admission Data Admission Date: 04/22/2018 Admission Time: 11:00 Procedure Procedure Types Cath Procedure Diagnostic Procedure LHC LHC w/Coronaries Peripheral Cath Diagnostic Procedure 4-Vessel Left Carotid Arteriogram Procedure Description Procedure Date Procedure Date: 04/22/2018 Procedure Start Time: 14:33 Procedure End Time: 15:11 Procedure Staff Name Function Jed Roper MD Performing Physician Nkechi Martínez RT Monitor Vita Phillips RT Scrub Jeniffer Marinelli RN Nurse Arnie Ragland RN Nurse Procedure Data Cath Procedure Fluoroscopy Diagnostic fluoroscopy Total fluoroscopy Time: time: 12.2 min 12.2 min Diagnostic fluoroscopy Total fluoroscopy dose: 769 dose: 769 mGy mGy Contrast Material Contrast Material Type Amount (ml) Isovue 300 60 Entry Location Entry Primary Successful Side Size Upsize 1 Upsize Entry Closure Cutler ccessful Closure Location (Fr) (Fr) 2 (Fr) Remarks Device Remarks Femoral Right 5 Fr 6 Fr 6 Fr Exoseal artery Mid-Length Short Estimated blood loss: 10 ml Diagnostic catheters Device Type Used For End Catheter Placement MULTIPACK JL 4.0 5Fr catheter DIAGNOSTIC JL 5 5Fr Procedure catheter ([id number]) DIAGNOSTIC JL 5 5Fr Procedure catheter ([id number]) MULTIPACK JL 4.0 5Fr Procedure catheter MULTIPACK 3DRC 5Fr Procedure catheter MULTIPACK Pigtail 5 Fr Ventriculography catheter Procedure Complications No complications Procedure Medications Medication Administration Route Dosage 0.9% NaCl I.V. 100 ml/hr Oxygen etCO2 Nasal cannula 2 l/min Lidocaine 2% added to field 20 Heparin Flush Bag added to field 2 bags (1000units/500ml NS) Versed I.V. 2 mg Fentanyl I.V. 50 mcg Versed I.V. 2 mg Fentanyl I.V. 25 mcg Fentanyl I.V. 25 mcg Nitroglycerin SL S.L. 0.4 mg Pepcid I.V. 20 mg Fentanyl I.V. 100 mcg Solumedrol I.V. 125 mg Hemodynamics Rest Heart Rate: 59 (bpm) Pressure Samples Time Site Value (mmHg) Purpose Heart Use Rate(bpm) 14:59 LV 196/18,24 Snapshot 73 14:59 LV 188/17,22 Snapshot 80 Gradients Valve Time Site Site Mean SEP/DFP Peak To Heart Use 1 2 (mmHg) (sec/min) Peak Rate (mmHg) (bpm) Aortic 15:00 LV AO 72 Snapshots Pre Cath Intra NCS Post Cath Vital Signs Time Heart Resp SPO2 etCO2 NIBP (mmHg) Rhythm Pain Sedation Rate (ipm) (%) (mmHg) Status Level (bpm) 14:09:50 65 18 99 28.5 202/110(140) NSR 0 (11) 10(A) , No pain 14:14:30 64 7 96 29.3 197/101(121) NSR 0 (11) 10(A) , No pain 14:19:01 60 11 97 29.2 165/88(135) NSR 0 (11) 10(A) , No pain 14:23:33 59 11 98 17.2 163/86(105) SB 0 (11) 10(A) , No pain 14:28:00 61 12 98 40.5 153/84(111) NSR 0 (11) 10(A) , No pain 14:32:24 59 12 97 27 159/91(114) SB 0 (11) 10(A) , No pain 14:36:54 59 11 97 35.3 157/85(117) SB 0 (11) 10(A) , No pain 14:41:16 59 11 97 39.8 151/90(107) SB 0 (11) 10(A) , No pain 14:45:43 61 10 98 32 149/87(104) NSR 0 (11) 9(A) , No pain 14:50:01 64 12 95 0 147/91(114) NSR 0 (11) 9(A) , No pain 14:55:31 65 13 96 34.5 177/103(127) NSR 0 (11) 9(A) , No pain 15:00:07 84 13 96 32.3 177/102(115) NSR 0 (11) 10(A) , No pain 15:05:06 68 14 97 23.2 Measuring NSR 0 (11) 9(A) , No pain 15:06:30 66 13 97 12.7 Time NSR 0 (11) 9(A) Exceeded , No pain 15:13:11 63 12 96 25.5 158/85(105) NSR 0 (11) 9(A) , No pain 15:17:15 52 17 95 27 89/48(77) NSR 0 (11) 9(A) , No pain Medications Time Medication Route Dose Verified Delivered Reason Notes Eff ectiveness by by 14:03:13 0.9% NaCl I.V. 100 Jed Jeniffer used for ml/hr [place] [facility] procedure MD BARAHONA 14:03:21 Oxygen etCO2 2 Jed Jeniffer used for Nasal l/min [facility] procedure cannula MD BARAHONA 14:03:26 Lidocaine 2% added 20ml Jed Adkins for local to vial [facility] anesthetic field MD WATSON 14:03:31 Heparin Flush added 2 Jed Adkins used for Bag to bags [facility] procedure (1000units/500ml field MD WATSON NS) 14:33:30 Versed I.V. 2 mg Jed Jeniffer for [facility] sedation MD BARAHONA 14:33:36 Fentanyl I.V. 50 Jed Jeniffer for mcg [facility] sedation MD BARAHONA 14:41:29 Versed I.V. 2 mg Jed Jeniffer for [facility] sedation MD BARAHONA 14:41:33 Fentanyl I.V. 25 Jed Swift for mcg [facility] sedation RN 15:00:59 Fentanyl I.V. 25 Jed Swift for mcg [facility] sedation RN 15:12:31 Nitroglycerin SL S.L. 0.4 Arnie Arnie for chest mg Lorigan Lorigan pain RN RN 15:12:43 Pepcid I.V. 20 mg Arnie Arnie for chest Lorigan Lorigan pain RN RN 15:16:22 Fentanyl I.V. 100 Arnie Arnie for chest mcg Lorigan Lorigan pain RN RN 15:16:38 Solumedrol I.V. 125 Arnie Arnie for chest mg Lorigan Lorigan pain RN audiometric technician Log Time Note 13:57:58 Diagnostic Cath Status : Elective 13:58:17 Jeniffer Marinelli RN sent for patient. Start room use. 13:58:18 Time tracking: Regular hours (M-F 7:00 - 5:00) 13:58:22 Plan of Care:Hemodynamics will remain stable., Cardiac rhythm will remain stable., Comfort level will be maintained., Respiratory function will remain adequate., Patient/ family verbilizes understanding of procedure., Procedure tolerated without complication., Recovers from procedure without complications.. 14:03:13 0.9% NaCl 100 ml/hr I.V. was administered by Jeniffer Marinelli RN; used for procedure; 14:03:21 Oxygen 2 l/min etCO2 Nasal cannula was administered by Jeniffer Marinelli RN; used for procedure; 14:03:26 Lidocaine 2% 20ml vial added to field was administered by Jed Roper MD; for local anesthetic; 14:03:31 Heparin Flush Bag (1000units/500ml NS) 2 bags added to field was administered by Jed Roper MD; used for procedure; 14:07:19 Vital chart was started 14:07:30 Patient received from Pre/Post Procedure Room to CCL 1 Alert and oriented. Tansferred to table in Supine position. 14:07:32 Warm blankets applied, and hilda hugger turned on for patient comfort. 14:07:32 Warm blankets applied, and hilda hugger turned on for patient comfort. 14:07:33 Correct patient and procedure confirmed by team. 14:07:35 Signed procedure consent form obtained from patient. 14:07:36 ECG and BP/O2 sat monitors applied to patient. 14:07:38 Baseline sample Acquired. 14:07:41 Rhythm: sinus rhythm 14:07:43 Full Disclosure recording started 14:07:47 H&P Date Dictated: 04/22/2018 Within 30 days and on chart., H&P Addendum completed by physician on day of procedure. (MUST COMPLETE FOR ALL OUTPATIENTS). 14:07:49 Pre-procedure instructions explained to patient. 14:07:50 Pre-op teaching completed and patient verbalized understanding. 14:07:51 Family in waiting room. 14:07:53 Patient NPO since Midnight. 14:07:54 Is the patient allergic to Iodine/contrast media? No. 14:07:55 Was the patient premedicated? No 14:08:08 Is patient on blood thinner?No 14:08:09 Patient diabetic? No. 14:08:12 Previous problem with sedation/anesthesia? No ? 14:08:14 Snore? Yes 14:08:15 Sleep apnea? No 14:08:16 Deviated septum? No 14:08:16 Opens mouth fully? Yes 14:08:17 Sticks out tongue? Yes 14:08:19 Airway obstruction? No ? 14:08:25 Dentures? No ? 14:08:28 Pre procedure: right dorsailis pedis pulse 1+ Palpable, but thready & weak; easily obliterated 14:08:30 Pre procedure: left dorsailis pedis pulse 1+ Palpable, but thready & weak; easily obliterated 14:08:31 Patient pain scale 0/10 ?. 14:08:38 IV patent on arrival in left forearm with 0.9% NaCl at [facility]. 14:08:40 Lab results completed and on chart. 14:08:45 Right groin area was prepped with chlora-prep and draped in sterile fashion 14:08:45 Alarms reviewed by R. N. 14:08:46 Sharps counted by scrub and verified by R.N. 14:24:19 Zero performed for pressure channel P1 14:32:55 Physician arrived 14:32:55 --------ALL STOP TIME OUT------ 14:32:56 Final Timeout: patient, procedure, and site verified with staff and physician. All members of the team are in agreement. 14:32:59 Right groin site verified by team. 14:33:03 Physical assessment completed. ASA score P 2 - A patient with mild systemic disease as per Jed Roper MD. 14:33:08 Sedation plan: IV Moderate Sedation Medication:Versed, Fentanyl 14:33:12 Use device set Femoral Dx 14:33:14 ACIST Syringe (36706) opened to sterile field. 14:33:14 Bag Decanter (2002S) opened to sterile field. 14:33:15 Medline Cath Pack ([id number]) opened to sterile field. 14:33:15 DIAGNOSTIC WIRE .035 260cm J wire (845838) opened to sterile field. 14:33:17 ACIST Hand Control (89588) opened to sterile field. 14:33:18 ACIST Manifold (54311) opened to sterile field. 14:33:18 DIAGNOSTIC Multipack 5Fr catheter set (BC0748) opened to sterile field. 14:33:19 Tegaderm 4 x 4 (1626W) opened to sterile field. 14:33:20 PERCUTANEOUS ENTRY 19GA needle opened to sterile field. 14:33:22 [place]ATH Prelude 5Fr 0.035 (FSD-4G-47-035) opened to sterile field. 14:33:25 Procedure started. 14:33:30 Versed 2 mg I.V. was administered by Jeniffer Marinelli RN; for sedation; 14:33:36 Fentanyl 50 mcg I.V. was administered by Jeniffer Marinelli RN; for sedation; 14:33:44 Local anesthetic to right femoral artery with Lidocaine 2% by Jed Roper MD.INITIAL ACCESS ONLY 14:33:53 A 5 Fr sheath was inserted into the Right Femoral artery 14:37:51 A MULTIPACK JL 4.0 5Fr catheter was advanced over the wire and used for . 14:38:10 JL4 exchanged for JL5 14:38:26 A DIAGNOSTIC JL 5 5Fr catheter (941239V) was advanced over the wire and used for Procedure. 14:40:32 Catheter removed unable to cannulate. 14:41:13 [place]ATH 6FR Destination (RSR01) opened to sterile field. 14:41:23 [place] upsized to a 6 Fr Mid-Length. 14:41:29 Versed 2 mg I.V. was administered by Jeniffer Yves RN; for sedation; 14:41:33 Fentanyl 25 mcg I.V. was administered by Jeniffer Marinelli RN; for sedation; 14:44:41 A DIAGNOSTIC JL 5 5Fr catheter (138571M) was advanced over the wire and used for Procedure.unable to cannulate 14:47:10 A MULTIPACK JL 4.0 5Fr catheter was advanced over the wire and used for Procedure. 14:48:01 unable to cannulate 14:48:16 GUIDE 5FR EBU 3.5 catheter ([id number]) opened to sterile field. 14:50:05 unable to cannulate 14:50:38 GUIDE 5FR EBU 4.0 catheter (LW1MTY00) opened to sterile field. 14:51:21 LCA angiography performed. 14:53:11 A MULTIPACK 3DRC 5Fr catheter was advanced over the wire and used for Procedure. 14:55:43 RCA angiography performed. 14:59:02 left carotid angiogram. 14:59:11 Left carotid angiography performed. 14:59:11 Catheter removed. 14:59:20 A MULTIPACK Pigtail 5 Fr catheter was advanced over the wire and used for Ventriculography. 15:00:31 EF : 50 % 15:00:53 EXOSEAL 5Fr (EX500) opened to sterile field. 15:00:59 Fentanyl 25 mcg I.V. was administered by Jeniffer Marinelli RN; for sedation; 15:00:59 Catheter removed. 15:01:54 [place]ath upsized to a 6 Fr Short. 15:01:55 [place]ath removed intact; hemostasis achieved with Exoseal to the Right Femoral artery. 15:02:09 SHEATH 6FR Reading (AYZ442) opened to sterile field. 15:02:17 Procedure ended.(Physican Out) 15:02:28 Fluoroscopy time 12.20 minutes. 15:02:34 Fluoroscopy dose: 769 mGy 15:02:34 Flurop Dose total: 769 15:02:40 Contrast amount:Isovue 300 60ml. 15:02:42 Sharps counted by scrub and verified by R.N. 15:02:47 Insertion/operative site no bleeding no hematoma. 15:02:51 Post-op/insertion site Right Femoral artery dressed using a 4 x 4 and Tegaderm. 15:02:54 Post Procedure Pulses reassessed and unchanged 15:02:58 Post-procedure physical assessment completed. ASA score P 2 - A patient with mild systemic disease as per Jed Roper MD. 15:03:05 Post-procedure physical assessment completed. ASA score P 2 - A patient with mild systemic disease as per Jed Roper MD. 15:03:08 Post procedure rhythm: unchanged. 15:03:12 Estimated blood loss: 10 ml 15:04:00 Procedure type changed to Cath procedure, Diagnostic procedure, LHC, LHC w/Coronaries, Peripheral Cath Diagnostic Procedure, 4-Vessel, Left Carotid Arteriogram 15::21 unable to veiw the right carotid 15:04:24 Procedure and supply charges have been captured, reviewed, submitted and are correct. 15:09:16 Procedure Complication : No complications 15::21 Vital chart was stopped 15::22 See physician's report for complete and final results. 15::24 Report given to Pre/Post Procedure Room. 15:09:29 Patient transfered to Pre/Post Procedure Room with Stretcher. 15:11:54 Procedure ended. 15:11:54 Full Disclosure recording stopped 15:11:57 End room use (Document Last) 15:12:31 Nitroglycerin SL 0.4 mg S.L. was administered by Arnie Ragland RN; for chest pain; 15:12:43 Pepcid 20 mg I.V. was administered by Arnie Ragland RN; for chest pain; 15:16:22 Fentanyl 100 mcg I.V. was administered by Arnie Ragland RN; for chest pain; 15:16:38 Solumedrol 125 mg I.V. was administered by Arnie Ragland RN; for chest pain; Device Usage Item Name Manufacture Quantity Catalog Number Hospital Part Current M inimal Lot# / Charge Number Stock Stock Serial# Code ACIST Syringe Acist 1 94437 056721 682965 676174 2 0 (44963) [employer] Bag Decanter Microtek 1 740780 14655 831406 5 () Medical Inc. Medline Cath Medline 1 [id number] 505667 94757 478752 5 Pack ([id number]) DIAGNOSTIC WIRE St Karthik 1 958047 722288 381916 736791 3 0 .035 260cm J wire (237324) ACIST Hand Acist 1 92702 758986 016907 840462 5 Control (78198) [employer] ACIST Manifold Acist 1 94558 311845 634613 857850 5 (46875) [employer] Inc DIAGNOSTIC Cardinal 1 JY6250 120064 78975 549973 3 0 Multipack 5Fr Health catheter set (WA0181) Tegaderm 4 x 4 3M 1 1626W 906352 733449 468127 5 (1626W) PERCUTANEOUS Cook Medical 1 S49518 962912 886731 5 ENTRY 19GA needle [place]ATH Prelude Merit 1 QCC-3V-74-035 479228 372962 644034 5 5Fr 0.035 Medical (HHY-3D-86-035) MULTIPACK JL Cardinal 1 518100 5 4.0 5Fr Health catheter DIAGNOSTIC JL 5 Cardinal 1 [id number] 404103 001160 282123 5 5Fr catheter Health (753892B) SHEATH 6FR Terumo 1 RSR01 868806 81310 506497 5 Destination (RSR01) GUIDE 5FR EBU Medtronic 1 QA4CJV10 916972 645714 065703 1 3.5 catheter (DV1YZK47) GUIDE 5FR EBU Medtronic 1 [id number] 270203 593034 690692 1 4.0 catheter (GG7AKE77) MULTIPACK 3DRC Cardinal 1 795518 5 5Fr catheter Health MULTIPACK Cardinal 1 789854 5 Pigtail 5 Fr Health catheter EXOSEAL 5Fr Cardinal 1 EX500 378007 692234 806065 1 0 (EX500) Health SHEATH 6FR Terumo 1 ZEM785 156842 929844 359473 4 0 Reading (FDK401) Signature Audit [place] Stage Time Signature Unsigned Intra-Procedure 04/22/2018 Nkechi Martínez 3:21:36 PM RT(R) Signatures Monitor : Nkechi Martínez Signature : RT Date : Time : [facility] [address] [place] [address]
--- NOTE | ~2018-04-22 | OP ---
PATIENT NAME: MIQUEL WHALEN MEDICAL RECORD: [id number] :37 LOCATION:D.CAT ADMISSION DATE: SURGEON: CHUNG FLORES MD DATE OF OPERATION: 04/22/2018 PROCEDURE: Left heart catheterization, selective coronary angiography, right femoral artery approach. Please note, we had to use a long 6-Slovenian sheath due to marked tortuosity of the right iliac as well as unable to engage the right carotid system due to tortuosity of the innominate artery itself as well. FINDINGS: Left ventriculography in 30-degree TEJADA view: Normal wall motion and normal systolic function. CORONARY ANATOMY: LEFT MAIN: Left main is free of disease. LAD: Previous stenting is widely patent. There is no restenosis. The rest of vessel is widely patent. CIRCUMFLEX: Free of disease. RIGHT CORONARY ARTERY: Free of disease. The diagnostic catheter was then pulled to the level of the left common carotid. Left common carotid was selectively engaged. This showed left common carotid is small vessel and free of disease. Left external carotid has luminal irregularities. No lesion greater than 10%. Left internal carotid has no obstructive disease. IMPRESSION: He will need CTA to evaluate right internal carotid system. Coronary anatomy appears normal with no restenosis. TRANSINT:[id number] Voice Confirmation ID: [id number] DOCUMENT ID: [id number] CHUNG FLORES MD at 1302 CC: [id number] DICTATION DATE: 04/22/18 1516 GRAIN PACKER: 04/22/182012 [facility] CLI 04/22/18 [place] [id number] [place] [id number]
[2018-04-22] MEDS ORDERED: ASCORBIC ACID500 MG PO (11:17)
[2018-04-22] MEDS ORDERED: NIACIN250 M1 PO (11:17)
[2018-04-22] MEDS ORDERED: ISOSORBIDE MONO30 M1 PO (11:18)
[2018-04-22] MEDS ORDERED: MOBIC7.5 MG PO (11:18)
[2018-04-22] MEDS ORDERED: BAYER CHEWABLE81 MG PO (11:19)
[2018-04-22] MEDS ORDERED: VITAMIN E400 UNI2 PO (11:19)
[2018-04-22] MEDS ORDERED: VITAMIN D2000 UNIT PO (11:19)
[2018-04-22 11:40] LABS: BASOPHILS 0.1 % (0-2); EOSINOPHILS 3.8 % (0-7); HEMATOCRIT 40.6 % (42.0-54.0); HEMOGLOBIN 13.3 g/dL (13.5-17.5); IMMATURE GRANULOCYTES 0.1 % (0-5); LYMPHOCYTES 34.6 % (15-50); MCH 31.6 pg (26.0-34.0); MCHC 32.8 g/dL (31.0-37.0); MCV 96.4 fL (80.0-100.0); MEAN PLATELET VOLUME 10.5 fL (7.4-10.4); MONOCYTES 8.1 % (2-11); NEUTROPHILS 53.3 % (40-80); PLATELET COUNT 178 10x3/uL (130-400); RBC 4.21 10x6/uL (4.20-6.10); RDW 14.2 % (11.5-14.5); WBC 6.8 10x3/uL (4.8-10.8)
[2018-04-22 11:47] VITALS: BP 181/93; Ht 190.5 cm; Wt 102.3 kg
[2018-04-22 11:52] LABS: CALCIUM 9.3 mg/dL (8.5-10.1); CARBON DIOXIDE 28.8 mmol/L (21.0-32.0); CREATININE - SERUM 1.2 mg/dL (0.6-1.3); POTASSIUM - SERUM 3.8 mmol/L (3.5-5.1)
== END 2018-04-22 18:05 | disposition home or self-care (01) ==
LOC: D.CATH 11:00
PROVIDERS: Internal Medicine Interventional Cardiology
DX: I25.10 Atherosclerotic heart disease of native coronary artery without angina pectoris (principal); Z95.5 Presence of coronary angioplasty implant and graft; I65.22 Occlusion and stenosis of left carotid artery; Z01.812 Encounter for preprocedural laboratory examination

== ENCOUNTER → 2018-07-08 07:35 | Day surgery (SDC) | payer MEDICARE, OTHER ==
[2018-07-06 10:44] LABS: BASOPHILS 0 % (0-2); EOSINOPHILS 2.7 % (0-7); HEMATOCRIT 37.7 % (42.0-54.0); HEMOGLOBIN 12.5 g/dL (13.5-17.5); IMMATURE GRANULOCYTES 0.2 % (0-5); LYMPHOCYTES 28.5 % (15-50); MCH 31.5 pg (26.0-34.0); MCHC 33.2 g/dL (31.0-37.0); MEAN PLATELET VOLUME 10.1 fL (7.4-10.4); MONOCYTES 9.7 % (2-11); NEUTROPHILS 58.9 % (40-80); PLATELET COUNT 145 10x3/uL (130-400); RBC 3.97 10x6/uL (4.20-6.10); RDW 13.3 % (11.5-14.5); WBC 6.4 10x3/uL (4.8-10.8)
[2018-07-06 10:52] LABS: ANION GAP 12.9 mmol/L (8-16); CALCIUM 8.9 mg/dL (8.5-10.1); CARBON DIOXIDE 29.4 mmol/L (21.0-32.0); CREATININE - SERUM 1.3 mg/dL (0.6-1.3); POTASSIUM - SERUM 4.3 mmol/L (3.5-5.1)
[~2018-07-08] VITALS: Ht 190.5 cm; Wt 97.1 kg
[~2018-07-08 07:35] MED LIST changes: +ASCORBIC ACID500 MG PO; +BAYER CHEWABLE81 MG PO; +CASCARA PO; +GARLIC PO; +ISOSORBIDE MONO30 M1 PO; +MOBIC7.5 MG PO; +NIACIN250 M1 PO; +VITAMIN D2000 UNIT PO; +VITAMIN E400 UNI2 PO; +milk thistle PO
[2018-07-08 08:17] VITALS: BP 145/82; Ht 190.5 cm; Wt 97.1 kg
--- NOTE | 2018-07-08 11:34 | OP ---
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 PROCEDURE: Cystoscopy with UroLift implantation times 4 units. FINDINGS: Previous TURP, but there is regrowth of the prostate near the apex, the posterior and anterior lobes. BLOOD LOSS: None. CLINICAL HISTORY: This is an 83-year-old male who has complaints of difficulty voiding. It has been an issue for several years, but now it is getting worse. He had a TURP 25 years ago. Currently, he has nocturia greater than 3 with urge incontinence. He has hesitancy in order to start a urine flow and the flow was weak. He does feel empty after voiding and he has not had any urinary tract infections. Postvoid residual when checked in the office was 0 mL. On digital rectal examination, his prostate is small at 30 grams in size. His IPPS score is 17 and his quality of life score is 3. He comes today to have the UroLift procedure done. HE IS ALLERGIC TO MORPHINE AND XARELTO. He received cardiac clearance from Dr. Silverman. He was given Ancef extrusion technician to the OR. DESCRIPTION OF PROCEDURE: The patient was given IV sedation. He was then placed into dorsal lithotomy position and prepped and draped. The cystoscopy was performed using the UroLift scope. No penile urethral strictures were seen. He has obstructive posterior tissue as well as overhanging tissue from the anterior lobe creating a hanging roof. Other than that, the lateral lobes are widely resected and the bladder neck is open. Single ureteral orifices are seen. The bladder was mildly trabeculated. No bladder tumors were seen. We placed UroLift units one on each side, near the verumontanum level to spread out the posterior urethral tissue. These are placed in the anterior lateral lobe at the level of the verumontanum. Then, another two units were placed near the bladder neck. We moved back about 1.5 cm distal to the bladder neck. I tried to gather as much of the anterior tissue as possible and the UroLift device was fired a 45-degree upward angle at the anterior lateral lobes to try to get as much of the anterior tissue as possible. At the end of the procedure, the prostatic urethra was wide open in all dimensions. The bladder was emptied through the cystoscope sheath and then the scope was removed. I will see the patient in followup in 1 months' time to check on his voiding symptoms. TRANSINT:[id number] Voice Confirmation ID: [id number] DOCUMENT ID: [id number] OPERATIVE REPORT [id number] MIQUEL WHALEN, LEONARD Swain MD at 1134 CC: [id number] DICTATION DATE: 07/08/18 1039 CHAUFFEUR: 07/08/18 1126 PRE [facility] [address] [place] [address]
--- NOTE | 2018-07-08 13:37 | NUR ---
PATIENT RECIEVED WITH NO COMPLICTIONS. URINATED WITH NO PAIN, IV DC WITH CATH INTACT. DC EDUCATION PROVIDED AND PT AND SPOUSE VERBALIZED UNDERSTANDING.
== END | disposition home or self-care (01) ==
LOC: D.OPS 07:35 → D.PAN 10:30 → D.OPS 10:30
PROVIDERS: Anesthesiology
DX: N40.1 Benign prostatic hyperplasia with lower urinary tract symptoms (principal); N13.8 Other obstructive and reflux uropathy; N39.41 Urge incontinence; R39.11 Hesitancy of micturition; R35.1 Nocturia; R39.12 Poor urinary stream; Z88.5 Allergy status to narcotic agent; Z88.8 Allergy status to other drugs, medicaments and biological substances; Z01.812 Encounter for preprocedural laboratory examination

== ENCOUNTER → 2018-08-25 10:48 | Outpatient (CLI) | payer MEDICARE, OTHER ==
[2018-07-08 08:17] VITALS: BMI 26.8
--- NOTE | ~2018-08-25 | EC ---
PATIENT:MIQUEL WHALEN DATE OF SERVICE: 08/25/18 SEX: M MEDICAL RECORD: [id number] DATE OF : 39 LOCATION:D[facility] AGE OF PATIENT: 83 ADMISSION DATE: 08/25/18 REFERRING PHYSICIAN: INTERPRETING PHYSICIAN: CHUNG FLORES MD ECHOCARDIOGRAM REPORT ECHO CHARGES 4 ECHO COMPLETE Date: 08/25/18 CLINICAL DIAGNOSIS: ANGINA/DIZZINESS H/O CAD/HTN ECHOCARDIOGRAPHIC MEASUREMENTS (adult normal given) AC root (d.<3.7cm) 3.4 cm LV Septum d (<1.2 cm> 1.5 cm Valve Excursion 2.3 cm LV Septum (systole) 2.2 cm Left Atria (s.<4.0cm> 4.9 cm LVPW d(<1.2cm) 1.3 cm RV (d.<2.3cm) 2.9 cm LVPW (sytole) 2.3 cm LV diastole(<5.6CM) 4.4 cm MV E-F(>70mm/sec) cm LV systole 2.0 cm LVOT Diameter 2.2 cm MV exc.(>10mm) cm Est.ejection fraction (50-75%) % DOPPLER: LVIT cm/sec A 65.0 cm/sec E 55.0 cm/sec LA cm/sec RVSP 35.0 mmHg LVOT 131 cm/sec AOP1/2T m/s Asc. Ao 119 cm/sec RVOT 78.0 cm/sec RA cm/sec PA 80.0 cm/sec AV Gradient Peak 5.7 mmHg AV Mean 2.7 mmHg AV Area 4.7 cm MV Gradient Peak 3.1 mmHg MV Mean 0.82 mmHg MV Area cm COMMENTS: OP - HC Lead Ruby On Rails Developer: 1 SUNNY HAYES Urban Anthropologist: 3 Dr. Silverman TAPE# PACS Pericardial Effusion N DATE OF SERVICE: Adequate 2D, color flow, spectral Doppler, and M-Mode. LVH is present. LV internal dimension is normal. Wall motion is normal. EF is greater than or equal to 55%. Aortic valve sclerosis without stenosis by Doppler interrogation. Left atrium dilated at 4.9 cm. Mitral valve shows no prolapse. Mild MR. Right-sided chamber grossly normal. Trace TR. TRANSINT:[id number] Voice Confirmation ID: [id number] DOCUMENT ID: [id number] ECHOCARDIOGRAM REPORT [id number] MIQUEL WHALEN GREGORY A MD CC: [id number] DICTATION DATE: 08/31/18 1128 [employer]: 08/31/18 1206 [facility] CLI 08/25/[address] [address]
== END | disposition home or self-care (01) ==
LOC: D.HCCARDIO 10:48
PROVIDERS: ATTEND Internal Medicine Interventional Cardiology
DX: I25.10 Atherosclerotic heart disease of native coronary artery without angina pectoris (principal)

== ENCOUNTER → 2019-11-17 10:44 | Outpatient (CLI) | payer MEDICARE, OTHER ==
[2018-07-08 08:17] VITALS: BMI 26.8
== END | disposition home or self-care (01) ==
LOC: D.HCCECHO 10:30
PROVIDERS: ATTEND Internal Medicine Interventional Cardiology
DX: I25.10 Atherosclerotic heart disease of native coronary artery without angina pectoris (principal)